=== PATIENT | female | born 1945 | race African-American/Black ===

== ENCOUNTER → 2016-11-28 | Outpatient (CLI) | payer MEDICARE, BC | LOC: COL.RAD 06:42 | DX: R12 Heartburn (principal); R11.0 Nausea | CPT/HCPCS: A9541 ==

== ENCOUNTER → 2022-05-04 | Outpatient (CLI) | payer MEDICARE, BC | LOC: COL.RAD 10:38 | DX: D72.819 Decreased white blood cell count, unspecified (principal) ==